=== PATIENT | male | born 1970 | race Caucasian/White ===

== ENCOUNTER → 2020-07-13 | Outpatient (CLI) | payer BC ==
--- NOTE | 2020-07-13 15:20 | RAD ---
INDICATION: Reason: RT INGUINAL LUMP, POSSIBLE HERNIA / Spl. Instructions: / History: COMPARISON: None. FINDINGS: Focused ultrasound images are obtained of the right groin. Within the right groin there is subcutaneous fat and musculature without a drainable fluid collection. The patient's vessels seen within the region. No loops of bowel extending into the right groin. IMPRESSION: * No drainable fluid collection or mass at the right groin soft tissues. Electronically signed by: Adolfo France MD (07/13/2020 3:17 PM) [id number]
== END | disposition home or self-care (01) ==
LOC: US 14:29
PROVIDERS: ATTEND Nurse Practitioner Adult Health
DX: R19.09 Other intra-abdominal and pelvic swelling, mass and lump (principal); R35.1 Nocturia; K40.90 Unilateral inguinal hernia, without obstruction or gangrene, not specified as recurrent; Z00.01 Encounter for general adult medical examination with abnormal findings; J30.9 Allergic rhinitis, unspecified
CPT/HCPCS: 76881